=== PATIENT | female | born 1995 | race Caucasian/White ===

== ENCOUNTER 2023-11-02 13:14 | Emergency (ER) | payer SELFPAY ==
[~2023-11-02] VITALS: Ht 162.6 cm; Wt 56.8 kg
[2023-11-02 13:20] VITALS: TEMP 97.6
[2023-11-02 15:33] LABS: BASO # 0.1 K/mm3 (0.0-0.2); BASO % 0.5 % (0.0-2.0); EOS # 0.4 K/mm3 (0.0-0.7); EOS % 2.2 % (0.0-4.0); GRAN # 14.4 K/mm3 (1.4-6.5); GRAN % 83.4 % (42.2-75.2); HEMATOCRIT 37.8 % (37.0-47.0); HEMOGLOBIN 13.1 g/dl (12.5-16.0); LYMPH # 1.8 K/mm3 (1.2-3.4); LYMPH % 10.5 % (20.0-51.0); MEAN CELL VOLUME 83 fl (80.0-100.0); MEAN CORPUSCULAR HEMOGLOBIN 29 pg (27-31); MEAN CORPUSCULAR HGB CONC 35 g/dl (33.0-37.0); MEAN PLATELET VOLUME 9.6 fl (7.4-10.4); MONO # 0.5 K/mm3 (0.1-0.6); MONO % 3.1 % (1.7-9.3); PLATELET COUNT 265 K/mm3 (130-400); RED BLOOD COUNT 4.55 M/mm3 (4.10-5.30); REDCELL DISTRIBUTION WIDTH-CV 12.7 % (11.5-14.5)
[2023-11-02 15:52] LABS: ALBUMIN 4.5 g/dL (3.5-5.0); BILIRUBIN,TOTAL 0.2 mg/dL (0.2-1.2); CALCIUM 9.5 mg/dL (8.4-10.2); CREATININE, serum 0.76 mg/dL (0.57-1.11); POTASSIUM 3.6 mEq/L (3.5-4.5); TOTAL PROTEIN 7.7 g/dl (6.2-8.1)
[2023-11-02 16:11] LABS: PROLACTIN 23.6 ng/mL (5.18-26.53)
[2023-11-02 16:43] LABS: COLLECTION METHOD CLEAN CATCH
[2023-11-02 16:57] LABS: PH 7.5 (5.0-8.5); URINE APPEARANCE CLEAR (CLEAR/HAZY); URINE BLOOD NEGATIVE (NEGATIVE); URINE COLOR YELLOW (YELLOW); URINE GLUCOSE NEGATIVE (NEGATIVE); URINE KETONE TRACE (NEGATIVE); URINE NITRATE NEGATIVE (NEGATIVE); URINE PROTEIN(semi-quant) NEGATIVE (NEGATIVE)
[2023-11-02 17:02] LABS: TRICYCLIC ANTIDEPRESS URINE NEGATIVE (NEGATIVE)
[2023-11-02] MEDS ORDERED: KEPPRA 500MG500 MG PO (17:48)
[2023-11-02 18:02] VITALS: BP 115/8; PULSE 89
== END 2023-11-02 18:02 | disposition home or self-care (01) ==
LOC: COL.ER 13:14
PROVIDERS: Nurse Practitioner
DX: R56.9 Unspecified convulsions (principal)